=== PATIENT | male | born 1965 | race Caucasian/White ===

== ENCOUNTER 2016-09-27 13:15 | Inpatient (IN) | payer MEDICAID ==
[2016-09-27] MEDS ORDERED: PROMETHAZINE HCL 25 MG/ML VIAL ONE (14:27)
[2016-09-27] MEDS ORDERED: fentaNYL 100 MCG/2 ML INJ ONE ×3 (14:28→20:11)
[2016-09-27] MEDS ORDERED: MIDAZOLAM 2 MG/2 ML VIAL ONE ×2 (14:28→17:09)
[2016-09-27 14:30] LABS: HEMATOCRIT 44.9 % (40.0-51.0)
[2016-09-27 14:43] LABS: GLOMERULAR FILTRATION RATE > 60; GLUCOSE 125 mg/dL (70-100)
[2016-09-27 14:44] LABS: APTT 21.8 SEC (23.0-38.0)
[2016-09-27 15:16] LABS: INR 0.98 (0.83-1.16); PROTIME(PATIENT) 12.9 SEC (12.0-15.0)
[2016-09-27] MEDS ORDERED: HEPARIN/DEXTROSE 25,000 UNIT/500 ML BAG IV ONE (16:49)
[2016-09-27] MEDS ORDERED: IOPAMIDOL (ISOVUE-300) 100 ML BTL IV ONE (17:13)
[2016-09-27] MEDS ORDERED: HEPARIN 10,000 UNIT/10 ML MDV ONE (17:14)
[2016-09-27] MEDS ORDERED: ALTEPLASE 5 MG in NS 100 ML IVP SCH (18:00)
[2016-09-27] MEDS ORDERED: PROMETHAZINE HCL 25 MG/ML VIAL IVP PRN (18:21)
[2016-09-27] MEDS ORDERED: ONDANSETRON 4 MG/2 ML VIAL IVP PRN (18:21)
[2016-09-27] MEDS ORDERED: HEPARIN/DEXTROSE 500 ML IV SCH (18:30)
[2016-09-27] MEDS: NS 1,000 ML IV SCH (19:00)
[2016-09-27] MEDS: HYDROmorphONE/DILAUDID 4 MG TAB PO PRN ×2 (19:15→23:04)
--- NOTE | 2016-09-27 20:00 | IR ---
Left Lower Extremity Arterial Runoff TPA Lysis Indication: Two weeks post femoral to popliteal artery bypass graft, now thrombosed. Peripheral vas cular disease. Long segment distal occlusion of the SFA and popliteal artery. Dissection of the dis dea SFA and popliteal artery. The dissection at the distal anastomosis has been tacked down. A vein graft was used, that is about 5 mm in diameter. Informed Consent: Obtained from the patient. Risks and benefits were discussed. Cross Cutting Measure: Patient's current list of medications including all known prescriptions, over -the-counters, herbals, and vitamin/mineral/dietary supplements are reviewed. Medications' name, dos age, frequency, and route of administration are confirmed. Patient is a non-smoker. Prophylactic Antibiotic: Cefazolin was not ordered and administered for antimicrobial prophylaxis be cause it was not medically necessary. VTE Prophylaxis: There is not an order for VTE prophylaxis to be given within 24 hours of the proced ure end time. VTE prophylaxis was not given because it was not medically necessary. Technique: Patient is placed in supine position. A "timeout" procedure was performed to identify th e correct patient and the correct procedure. 1% Xylocaine was used for local anesthetic. All elemen ts of maximal sterile barrier technique, including cap, mask, sterile gown, sterile gloves, large gloria rile sheet, hand hygiene, and 2% chlorhexidine for cutaneous antisepsis, followed. Ultrasound evaluation of potential access site was performed. After successfully identifying a paten t vessel, ultrasound guidance was used to puncture the vessel. A permanent recording was created for the patient's record. When ultrasound is used, sterile gel and probe covers are used. The right common femoral artery is accessed under ultrasound guidance using a micropuncture needle, f ollowed by a micropuncture sheath and [place] wire. 0.035 wire is advanced into abdominal aorta, follow ed by a 7-Belarusian, 50-cm vascular sheath. Reverse catheter was formed in the abdominal aorta, positio pedro up-and-over into the left common iliac artery, followed by Glidewire into the SFA. Glidecatheter was advanced, followed by exchange of the Glidewire for Amplatz wire exchange length. The sheath wa s then advanced up-and-over and positioned into the left external iliac artery. Runoff arteriogram i s performed proximally, showing nubbin of thrombosed vein graft. This nubbin measured 3 mm in diamet er. Access across this nubbin proved to be fairly challenging today. Glidewire access into the nubbin wa s accomplished, gingerly followed by advancement of the Glidecatheter into the origin of this graft. The eventual system that was successful in traversing this thrombosed graft was CXI 0.026 system ove r 0.014 wire, with subsequent removal of the CXI system over an exchange length 0.018 wire. Once the 0.018 wire was advanced into the distal graft, I was able to slide the Glidecatheter distall y, exchanging the 0.018 wire for an exchange length Amplatz wire. A limited arteriogram was performed through this vein graft, which throughout its thigh course is taz rly small. This could be spasm. Distally, it measured about 4 mm. I was not able to advance a Glid ewire across the distal anastomosis, and I did not try very hard because I did not want to further di ssect the distal anastomosis. Arteriogram performed does show runoff into an anterior tibial artery, tibioperoneal trunk, and subse quent posterior tibial and peroneal artery. Runoff to foot was very limited through the infusion cat heter sidearm. This shows some runoff through the posterior tibial artery and peroneal artery. Ther e does appear to be some contrast coming down the anterior tibial distribution. Medication: 12.5 mg Phenergan, 4.5 mg Versed, 225 mcg fentanyl, 1554 to 1753. Fluoroscopy: 29.7 minutes, 18 images. Impressions 1. Thrombosed femoral to popliteal artery vein graft. 2. Probable high-grade spasm through the vein graft as shown by the small caliber. Dissection is no t completely excluded. 3. Difficult access across the proximal anastomosis. 4. Buckling of the wire at the distal anastomosis. 5. TPA lysis started with a 50-cm infusion catheter, distally terminating about 8 cm above the dista l anastomosis, and proximally terminating in the distal external iliac artery. 6. Widely patent profunda and proximal SFA. Dr. Randle was present throughout the majority of the case, and reviewed the above findings.
[2016-09-27] MEDS: fentaNYL 100 MCG/2 ML INJ IVP PRN ×2 (20:13→23:04)
[2016-09-27] MEDS: ALTEPLASE 5 MG in NS 100 ML IV SCH (21:46)
[2016-09-28] MEDS: HYDROmorphONE/DILAUDID 4 MG TAB PO PRN ×5 (02:48→23:47)
[2016-09-28] MEDS: ALTEPLASE 5 MG in NS 100 ML IV SCH ×3 (02:48→11:08)
[2016-09-28] MEDS: fentaNYL 100 MCG/2 ML INJ IVP PRN ×4 (02:49→19:34)
[2016-09-28] MEDS: NS 1,000 ML IV SCH (05:10)
[2016-09-28 06:33] LABS: % IMMATURE GRANULYOCYTES 0.3 % (0.0-1.1); ABSOLUTE IMMATURE GRANULOCYTES 0.04 10^3/uL (0.00-0.10); ADD DIFF? NO; ADD MORPH? NO; ADD SCAN? NO; ATYPICAL LYMPHOCYTE FLAG 10 (0-99); FRAGMENT RBC FLAG 0 (0-99); HEMATOCRIT 42.1 % (40.0-51.0); HEMOGLOBIN 14.3 g/dL (13.7-17.5); LEFT SHIFT FLG 0 (0-99); LIPEMIA HEMOLYSIS FLAG 90 (0-99); MEAN CELL HEMOGLOBIN 30.4 pg (27.9-34.1); MEAN CELL VOLUME 89.6 fL (81.5-99.8); MEAN PLATELET VOLUME 10.2 fL (8.7-11.7); PLATELET CLUMPS FLAG 10 (0-99); PLATELET COUNT 235 10^3/uL (150-400); RED CELL DISTRIBUTION WIDTH 12.8 % (11.5-15.2)
[2016-09-28 06:44] LABS: APTT 27.5 SEC (23.0-38.0)
[2016-09-28] MEDS ORDERED: NON-FORMULARY NEW DRUG (Insulin Aspart [Novolog Flexpen] 0 UNIT) SQ SCH (07:30)
[2016-09-28] MEDS: INSULIN DETEMIR 80 UNIT SQ SCH ×2 (08:18→20:59)
[2016-09-28] MEDS: MORPHINE 30 MG PO SCH ×2 (08:18→21:43)
[2016-09-28] MEDS: LOSARTAN PO SCH (08:19)
[2016-09-28] MEDS: HYDROCHLOROTHIAZIDE PO SCH (08:19)
[2016-09-28] MEDS ORDERED: INSULIN DETEMIR 80 UNIT SQ SCH (09:00)
--- NOTE | 2016-09-28 09:17 | SOAPPROG ---
SOAP Progress Note Assessment/Plan: Assessment: no overnight problems. c/o calf pain only. afebrile. vss. comfortable. abd soft. right groin puncture site flat. left foot pink, warm, nicely perfused. distal left SFA dissection s/p fem - bk pop with rev SVG - thrombosed likely secondary to prior dissection flap irregularity/outflow obstruction. for repeat IR angio today with possible rendezvous intervention. Plan: 09/28/16 09:15 Objective: Vital Signs Temp Pulse Resp BP Pulse Ox 36.6 C 88 14 130/85 H 97 09/28/16 08:00 09/28/16 08:00 09/28/16 08:00 09/28/16 08:00 09/28/16 08:00 Laboratory Results 09/28/16 06:20 09/27/16 14:10 09/27/16 09/28/16 09/29/16 05:59 05:59 05:59 Intake Total 1310 Output Total 400 Balance 910 PT 12.9 SEC (12.0-15.0) 09/27/16 14:10 INR 0.98 (0.83-1.16) 09/27/16 14:10 ICD10 Worksheet Patient Problems: Problems Problem Status Diagnosed Chronic pain Acute HTN (hypertension) Acute
--- NOTE | 2016-09-28 09:53 | GHP ---
[f rep st] PREOP HISTORY AND PHYSICAL DATE OF ADMISSION: 09/27/2016 REASON FOR ADMISSION: Left SFA occlusion. HISTORY OF PRESENT ILLNESS: 51-year-old diabetic male with a significant history for prior left SFA occlusion. He underwent catheter-directed therapy with initial buddhism of patency to his foot. Postprocedurally, he developed a dissection flap in his distal superficial femoral artery coursing toward his trifurcation vessels. He underwent a right femoral to below-knee popliteal artery bypass with reversed saphenous vein graft 2 weeks ago. Over the course of the last week, his graft has occluded. He is undergoing catheter- directed therapy at this time. PAST MEDICAL HISTORY: Diabetes, chronic back pain, high cholesterol. PAST SURGICAL HISTORY: Left femoral to below-knee popliteal artery bypass with reversed right great saphenous vein EVLT. MEDICATIONS: Losartan, Adderall, Lunesta, morphine, Levemir, NovoLog. ALLERGIES: Penicillin, nonsteroidals (anaphylaxis). SOCIAL HISTORY: No alcohol. PHYSICAL EXAMINATION: GENERAL APPEARANCE: The patient is alert, appropriate, comfortable. HEART: Regular. LUNGS: Clear. ABDOMEN: Soft, nontender, nondistended. EXTREMITIES: 2+ right femoral, popliteal, dorsalis pedis, and posterior tibial pulses. Left 2+ femoral pulse with absent popliteal, dorsalis pedis, and posterior tibial pulses. Minimal graft flow confirmed on targeted ultrasonography. IMPRESSION/PLAN: Left femoral-popliteal artery occlusion secondary to superficial femoral artery dissection, status post femoral to below-knee popiteal artery grafting. Graft thrombosis is thought most likely secondary to prior dissection flap related outflow obstruction. The patient is being admitted at this time for catheter-directed lytic therapy with possible intervention as indicated. /[id number]/MODL MTDD
[2016-09-28] MEDS ORDERED: HYDROmorphONE/DILAUDID 2 MG/ML SYR ONE (13:41)
[2016-09-28] MEDS ORDERED: MIDAZOLAM 2 MG/2 ML VIAL ONE ×3 (13:41→16:16)
[2016-09-28] MEDS ORDERED: HEPARIN 10,000 UNIT/10 ML MDV ONE (15:02)
[2016-09-28] MEDS ORDERED: VERAPAMIL 5 MG/2 ML VIAL ONE (15:02)
[2016-09-28] MEDS ORDERED: NITROGLYCERIN/D5W/250 ML BOTTLE IV ONE ×2 (15:05→17:09)
[2016-09-28] MEDS ORDERED: FLUMAZENIL 0.5 MG/5 ML MDV IVP ONE (16:16)
[2016-09-28] MEDS ORDERED: NALOXONE HCL 0.4 MG/ML INJ ONE (16:16)
--- NOTE | 2016-09-28 17:06 | POSTOPPROG ---
Post Op Note Date of Operation: 09/28/16 Surgeon: Thang Pate Anesthesia: IV Sedation Pre-op Diagnosis: Arterial occlusion, left leg Post-op Diagnosis: same Indication: Ischemic pain Procedure: lysis of left fem-pop graft, stenting of anterior tibial artery Findings: Chronic dissection, threatened limb Inf/Abcess present in the surg proc area at time of surgery?: No EBL: 50-100
[2016-09-28] MEDS ORDERED: HEPARIN 10,000 UNIT/10 ML MDV IVP PRN ×2 (17:16→20:19)
[2016-09-28] MEDS ORDERED: HEPARIN/DEXTROSE 500 ML IV SCH ×2 (17:30→20:19)
[2016-09-28 17:55] LABS: % IMMATURE GRANULYOCYTES 0.3 % (0.0-1.1); ABSOLUTE IMMATURE GRANULOCYTES 0.05 10^3/uL (0.00-0.10); ADD DIFF? NO; ADD MORPH? NO; ADD SCAN? NO; ATYPICAL LYMPHOCYTE FLAG 10 (0-99); FRAGMENT RBC FLAG 0 (0-99); HEMATOCRIT 42.6 % (40.0-51.0); HEMOGLOBIN 14.5 g/dL (13.7-17.5); LEFT SHIFT FLG 0 (0-99); LIPEMIA HEMOLYSIS FLAG 90 (0-99); MEAN CELL HEMOGLOBIN 30.2 pg (27.9-34.1); MEAN CELL VOLUME 88.8 fL (81.5-99.8); MEAN PLATELET VOLUME 10.2 fL (8.7-11.7); PLATELET CLUMPS FLAG 0 (0-99); PLATELET COUNT 223 10^3/uL (150-400); RED CELL DISTRIBUTION WIDTH 12.5 % (11.5-15.2)
--- NOTE | 2016-09-28 18:12 | SOAPPROG ---
SOAP Progress Note Assessment/Plan: Assessment: 1. Worsening ischemia of left foot. Threatened limb. 2. Possible compartment syndrome. The patient had leakage from surgical popliteal anasatamosis throughout the arteriographic procedure this afternoon. Plan: 1. Hold IV heparin. 2. Surgical consultation with Dr. Randle. We discussed my concerns by telephone at 1805 hours. 09/28/16 18:07 09/28/16 18:12 09/28/16 18:15 Subjective: Worsening pain in left foot. Objective: Left foot now dusky, tender, with nearly completely absent capillary refill. No pulses by palpation or doppler. Upper calf tender and tight, posteriorly. Vital Signs Temp Pulse Resp BP Pulse Ox 36.8 C 91 15 134/83 H 95 09/28/16 17:25 09/28/16 17:48 09/28/16 17:48 09/28/16 17:48 09/28/16 17:48 Laboratory Results 09/28/16 14:47 09/27/16 14:10 09/27/16 09/28/16 09/29/16 05:59 05:59 05:59 Intake Total 1310 Output Total 400 800 Balance 910 -800 PT 12.9 SEC (12.0-15.0) 09/27/16 14:10 INR 0.98 (0.83-1.16) 09/27/16 14:10 ICD10 Worksheet Patient Problems: Problems Problem Status Diagnosed Chronic pain Acute HTN (hypertension) Acute
[2016-09-28] MEDS ORDERED: IOPAMIDOL (ISOVUE-370) 150 ML BTL IV ONE (18:26)
[2016-09-28] MEDS ORDERED: IOPAMIDOL (ISOVUE-300) 100 ML BTL IV ONE (18:26)
[2016-09-28 18:32] LABS: APTT 29.9 SEC (23.0-38.0); INR 1.13 (0.83-1.16); PROTIME(PATIENT) 14.4 SEC (12.0-15.0)
--- NOTE | 2016-09-28 20:16 | SOAPPROG ---
SOAP Progress Note Assessment/Plan: Assessment: no overnight problems. c/o calf pain only. afebrile. vss. comfortable. abd soft. right groin puncture site flat. left foot pink, warm, nicely perfused. distal left SFA dissection s/p fem - bk pop with rev SVG - thrombosed likely secondary to prior dissection flap irregularity/outflow obstruction. for repeat IR angio today with possible rendezvous intervention. patient returned from IR - rendezvous procedure via AT artery with ultimate stenting across anastomosis and TP trunk dissection. IR concerned about possible compartment syndrome and anast leak. patient states that his pain is improved upon my arrival. still posterior calf pain. foot discomfort unchanged from prior to admission. able to move his toes easily. afebrile. comfortable. calf with clinically soft compartments. foot pink and warm - no further duskiness. signal best heard at PT. bedside US performed - no popliteal hematoma. good distal graft flow. difficult to visualize flow in ankle vessels. low clinical suspicion for compartment syndrome and leg currently not threatened. will start heparin drip tonight and supportive care to minimize ongoing vasospasm. final graft outflow outcome TBD. may need future distal revascularization if current situation fails. care plan reviewed with patient and father / nursing staff at bedside. Plan: 09/28/16 09:15 09/28/16 20:10 Objective: Vital Signs Temp Pulse Resp BP Pulse Ox 36.8 C 96 14 129/77 H 92 09/28/16 17:25 09/28/16 20:00 09/28/16 20:00 09/28/16 20:00 09/28/16 20:00 Laboratory Results 09/28/16 14:47 09/27/16 14:10 09/27/16 09/28/16 09/29/16 05:59 05:59 05:59 Intake Total 1310 Output Total 400 800 Balance 910 -800 PT 14.4 SEC (12.0-15.0) 09/28/16 17:45 INR 1.13 (0.83-1.16) 09/28/16 17:45 ICD10 Worksheet Patient Problems: Problems Problem Status Diagnosed Chronic pain Acute HTN (hypertension) Acute
[2016-09-28] MEDS ORDERED: HEPARIN 10,000 UNIT/10 ML MDV IVP ONE (20:30)
[2016-09-28] MEDS ORDERED: ZOLPIDEM TARTRATE 5 MG TAB PO SCH (21:00)
--- NOTE | 2016-09-28 22:49 | IR ---
Left Leg Arteriography Balloon Angioplasty and Stenting of Left Anterior Tibial Artery and Distal Bypass Anastomosis History: Assess catheter-directed thrombolysis of occluded left femoropopliteal bypass graft. Ische charmaine left foot. 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 Consent: Risks and benefits of the procedure were discussed in detail, and informed consent was obta ined. Medications: Intravenous conscious sedation and analgesia were given under my supervision. Vital si gns, pulse oximetry, and electrocardiogram were monitored. The patient received 6.5 milligrams of Ve rsed and 1.6 mg of Dilaudid intravenously. He received 12.5 mg of Phenergan and 4 mg of Zofran intra venously. After placing the left distal anterior tibial arterial access, 200 mcg of nitroglycerin, 2 000 units of heparin, and 2.5 mg of verapamil were slowly injected intraarterially to combat spasm. Start time: 1400. End time: 1650. Fluoroscopy time in minutes: 26.2. Estimated exposure in mGy: 207. Technique: The right groin and the left anterior ankle were prepped and draped in sterile fashion. All elements of maximal sterile barrier technique were used, including cap, mask, sterile gown, steri le gloves, large sterile sheet, hand hygiene, and 2% chlorhexidine, for cutaneous antisepsis. 1% Xyl ocaine was used for local anesthetic. For ultrasound imaging guidance, the transducer and cable were placed in a sterile cover, and sterile coupling gel was used. The ultrasonic wire of the indwelling EKOS infusion catheter was removed, allowing the endhole of the infusion catheter to be injected for diagnostic arteriography of the left knee and upper left calf. Indwelling sidearm sheath was then i njected for left external iliac arteriography. The infusion catheter and sidearm sheath were removed over an exchange 0.035 Glidewire, and 5-Swazi Williams catheter was used coaxially through a new 7-[facility] SideArm sheath for arteriography of the upper femoropopliteal bypass graft. The catheter was pul led back to the left common femoral artery during arteriographic acquisition in order to opacify the origin of the graft from the left common femoral artery. Catheter was advanced distally down the lef t superficial femoral artery for arteriography of the chronic occlusion at the level of the left addu ctor hiatus. Prolonged efforts were then made, attempting antegrade recanalization of chronic occlus ion using the [employer] crossing device (Ocelot PIXL), but the old occlusion could not be pass ed. After local anesthetic, using ultrasound guidance, a 4-Swazi Microintroducer was placed into the dis dea left anterior tibial artery at the ankle, allowing retrograde passage of a 0.035 Roadrunner wire up to the popliteal level. 4-Swazi Glidecatheter was then used to cross into the distal graft. The catheter was then passed to the tibioperoneal trunk for selective arteriography. The catheter was t hen placed into the distal bypass graft and passed cephalad up to the common femoral artery. Exchang e 0.035 Glidewire was inserted from below and captured from above by a 5-mm Amplatz [place] snare a nd guide catheter. The wire was pulled back through the right common femoral sheath, allowing skin t o skin control of the guide wire. A 4-mm x 4-cm long angioplasty balloon was used to dilate the dist al popliteal anastomosis. Images were reviewed with Dr. Randle, who desired stenting of the anterior ti bial artery. This was performed through a 4-Swazi sidearm sheath in the distal anterior tibial acce ss after switching to a 0.014 300-cm long wire. A coaxial 5-Swazi long sheath and a 5-mm angioplast y balloon were passed from above to attempt to flare the upstream side of the stent in order to confo rm with the larger contours of the distal bypass. The catheter would not pass through the stent. Th e lower access was used to place an overlapping 5-mm x 19-mm long balloon-expandable stent, which was deployed in the distal portion of the graft . Arteriography was performed. The 7-Swazi sheath and coaxial 5-Swazi sheath of the right groin were pulled back to the right exte rnal iliac artery for arteriogram to assess suitability for StarClose. StarClose was deployed over 0 .035 Roadrunner wire to achieve hemostasis at the right groin. The left 4-Swazi sidearm sheath was pulled after giving additional dose of nitroglycerin, 200 mcg intraarterial, and hemostasis was obtai pedro by manual compression with a thrombix patch. The patient was returned to the Intensive Care Unit . Findings: Initial arteriography demonstrates lysis of clot in the left femoropopliteal bypass graft. The proximal anastomosis is patent. False lumen and extravasation of contrast is found at the dista l anastomosis. Minimal runoff through a tiny distal channel reaches the true lumen of the left anter ior tibial artery. Trace opacification of tibioperoneal trunk appears to be a false lumen. The chronic occlusion of distal left superficial femoral artery at the adductor hiatus is accompanied by large collateral arteries. Retrograde cannulation of the [place] left popliteal artery is possibly within dissection. After ball oon angioplasty, dissection is noted in the tibioperoneal trunk, with severe stenosis at origin of th e left anterior tibial artery. Problems with the stent are found after attempting cannulation of the first stent from the upstream side. After placing the overlapping stent, the external contour appea rs adequate. Filling defects are present in the distal portion of the graft, but these diminished wi th time. However, outflow from the graft is stagnant, related to spasm of the anterior tibial artery . Impressions 1. 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 2. Lysis of left femoropopliteal bypass graft. 3. Balloon angioplasty and stenting of left anterior tibial artery origin and distal anastomosis of left femoropopliteal bypass graft, with poor outflow of bypass graft at the conclusion of interventio n. 4. Extravasation of contrast from distal anastomosis of the femoropopliteal bypass graft. I discussed results with Dr. Stew Randle at 1800 hours. - - - - - - - - - - - - - - - - - - - - - - - - - - - - - - - - - - - - - - - - - - - - (PQRS Measures: Current medications were listed in the medical record, including all known prescript ions, [id number] medications, herbal medications, and nutritional supplements. Tobacco Use: T he patient is a current smoker. The patient was advised to stop. Prophylactic antibiotic: Unnecess meli. VTE prophylaxis: Ordered to begin within 24 hours of procedure.)
--- NOTE | 2016-09-28 22:49 | IR ---
Left Leg Arteriography Balloon Angioplasty and Stenting of Left Anterior Tibial Artery and Distal Bypass Anastomosis History: Assess catheter-directed thrombolysis of occluded left femoropopliteal bypass graft. Ische charmaine left foot. 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 Consent: Risks and benefits of the procedure were discussed in detail, and informed consent was obta ined. Medications: Intravenous conscious sedation and analgesia were given under my supervision. Vital si gns, pulse oximetry, and electrocardiogram were monitored. The patient received 6.5 milligrams of Ve rsed and 1.6 mg of Dilaudid intravenously. He received 12.5 mg of Phenergan and 4 mg of Zofran intra venously. After placing the left distal anterior tibial arterial access, 200 mcg of nitroglycerin, 2 000 units of heparin, and 2.5 mg of verapamil were slowly injected intraarterially to combat spasm. Start time: 1400. End time: 1650. Fluoroscopy time in minutes: 26.2. Estimated exposure in mGy: 207. Technique: The right groin and the left anterior ankle were prepped and draped in sterile fashion. All elements of maximal sterile barrier technique were used, including cap, mask, sterile gown, steri le gloves, large sterile sheet, hand hygiene, and 2% chlorhexidine, for cutaneous antisepsis. 1% Xyl ocaine was used for local anesthetic. For ultrasound imaging guidance, the transducer and cable were placed in a sterile cover, and sterile coupling gel was used. The ultrasonic wire of the indwelling EKOS infusion catheter was removed, allowing the endhole of the infusion catheter to be injected for diagnostic arteriography of the left knee and upper left calf. Indwelling sidearm sheath was then i njected for left external iliac arteriography. The infusion catheter and sidearm sheath were removed over an exchange 0.035 Glidewire, and 5-Greenlandic Williams catheter was used coaxially through a new 7-Hernandez [employer] SideArm sheath for arteriography of the upper femoropopliteal bypass graft. The catheter was pul led back to the left common femoral artery during arteriographic acquisition in order to opacify the origin of the graft from the left common femoral artery. Catheter was advanced distally down the lef t superficial femoral artery for arteriography of the chronic occlusion at the level of the left addu ctor hiatus. Prolonged efforts were then made, attempting antegrade recanalization of chronic occlus ion using the [employer] INFORMATION TECHNOLOGY SECURITY MANAGER crossing device (Ocelot PIXL), but the old occlusion could not be pass ed. After local anesthetic, using ultrasound guidance, a 4-Greenlandic Microintroducer was placed into the dis dea left anterior tibial artery at the ankle, allowing retrograde passage of a 0.035 Roadrunner wire up to the popliteal level. 4-Greenlandic Glidecatheter was then used to cross into the distal graft. The catheter was then passed to the tibioperoneal trunk for selective arteriography. The catheter was t hen placed into the distal bypass graft and passed cephalad up to the common femoral artery. Exchang e 0.035 Glidewire was inserted from below and captured from above by a 5-mm Amplatz gooseneck snare a nd guide catheter. The wire was pulled back through the right common femoral sheath, allowing skin t o skin control of the guide wire. A 4-mm x 4-cm long angioplasty balloon was used to dilate the dist al popliteal anastomosis. Images were reviewed with Dr. Randle, who desired stenting of the anterior ti bial artery. This was performed through a 4-Greenlandic sidearm sheath in the distal anterior tibial acce ss after switching to a 0.014 300-cm long wire. A coaxial 5-Greenlandic long sheath and a 5-mm angioplast y balloon were passed from above to attempt to flare the upstream side of the stent in order to confo rm with the larger contours of the distal bypass. The catheter would not pass through the stent. Th e lower access was used to place an overlapping 5-mm x 19-mm long balloon-expandable stent, which was deployed in the distal portion of the graft . Arteriography was performed. The 7-Greenlandic sheath and coaxial 5-Greenlandic sheath of the right groin were pulled back to the right exte rnal iliac artery for arteriogram to assess suitability for StarClose. StarClose was deployed over 0 .035 Roadrunner wire to achieve hemostasis at the right groin. The left 4-Greenlandic sidearm sheath was pulled after giving additional dose of nitroglycerin, 200 mcg intraarterial, and hemostasis was obtai pedro by manual compression with a thrombix patch. The patient was returned to the Intensive Care Unit . Findings: Initial arteriography demonstrates lysis of clot in the left femoropopliteal bypass graft. The proximal anastomosis is patent. False lumen and extravasation of contrast is found at the dista l anastomosis. Minimal runoff through a tiny distal channel reaches the true lumen of the left anter ior tibial artery. Trace opacification of tibioperoneal trunk appears to be a false lumen. The chronic occlusion of distal left superficial femoral artery at the adductor hiatus is accompanied by large collateral arteries. Retrograde cannulation of the [place] left popliteal artery is possibly within dissection. After ball oon angioplasty, dissection is noted in the tibioperoneal trunk, with severe stenosis at origin of th e left anterior tibial artery. Problems with the stent are found after attempting cannulation of the first stent from the upstream side. After placing the overlapping stent, the external contour appea rs adequate. Filling defects are present in the distal portion of the graft, but these diminished wi th time. However, outflow from the graft is stagnant, related to spasm of the anterior tibial artery . Impressions 1. 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 2. Lysis of left femoropopliteal bypass graft. 3. Balloon angioplasty and stenting of left anterior tibial artery origin and distal anastomosis of left femoropopliteal bypass graft, with poor outflow of bypass graft at the conclusion of interventio n. 4. Extravasation of contrast from distal anastomosis of the femoropopliteal bypass graft. I discussed results with Dr. Stew Randle at 1800 hours. - - - - - - - - - - - - - - - - - - - - - - - - - - - - - - - - - - - - - - - - - - - - (PQRS Measures: Current medications were listed in the medical record, including all known prescript ions, mqoy-yaw-gxxinpo medications, herbal medications, and nutritional supplements. Tobacco Use: T he patient is a current smoker. The patient was advised to stop. Prophylactic antibiotic: Unnecess meli. VTE prophylaxis: Ordered to begin within 24 hours of procedure.)
--- NOTE | 2016-09-28 22:49 | IR ---
Left Leg Arteriography Balloon Angioplasty and Stenting of Left Anterior Tibial Artery and Distal Bypass Anastomosis History: Assess catheter-directed thrombolysis of occluded left femoropopliteal bypass graft. Ische charmaine left foot. 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 Consent: Risks and benefits of the procedure were discussed in detail, and informed consent was obta ined. Medications: Intravenous conscious sedation and analgesia were given under my supervision. Vital si gns, pulse oximetry, and electrocardiogram were monitored. The patient received 6.5 milligrams of Ve rsed and 1.6 mg of Dilaudid intravenously. He received 12.5 mg of Phenergan and 4 mg of Zofran intra venously. After placing the left distal anterior tibial arterial access, 200 mcg of nitroglycerin, 2 000 units of heparin, and 2.5 mg of verapamil were slowly injected intraarterially to combat spasm. Start time: 1400. End time: 1650. Fluoroscopy time in minutes: 26.2. Estimated exposure in mGy: 207. Technique: The right groin and the left anterior ankle were prepped and draped in sterile fashion. All elements of maximal sterile barrier technique were used, including cap, mask, sterile gown, steri le gloves, large sterile sheet, hand hygiene, and 2% chlorhexidine, for cutaneous antisepsis. 1% Xyl ocaine was used for local anesthetic. For ultrasound imaging guidance, the transducer and cable were placed in a sterile cover, and sterile coupling gel was used. The ultrasonic wire of the indwelling EKOS infusion catheter was removed, allowing the endhole of the infusion catheter to be injected for diagnostic arteriography of the left knee and upper left calf. Indwelling sidearm sheath was then i njected for left external iliac arteriography. The infusion catheter and sidearm sheath were removed over an exchange 0.035 Glidewire, and 5-Iraqi Williams catheter was used coaxially through a new 7-Hernandez [employer] SideArm sheath for arteriography of the upper femoropopliteal bypass graft. The catheter was pul led back to the left common femoral artery during arteriographic acquisition in order to opacify the origin of the graft from the left common femoral artery. Catheter was advanced distally down the lef t superficial femoral artery for arteriography of the chronic occlusion at the level of the left addu ctor hiatus. Prolonged efforts were then made, attempting antegrade recanalization of chronic occlus ion using the [employer] OSTEOLOGY TEACHER crossing device (Ocelot PIXL), but the old occlusion could not be pass ed. After local anesthetic, using ultrasound guidance, a 4-Iraqi Microintroducer was placed into the dis dea left anterior tibial artery at the ankle, allowing retrograde passage of a 0.035 Roadrunner wire up to the popliteal level. 4-Iraqi Glidecatheter was then used to cross into the distal graft. The catheter was then passed to the tibioperoneal trunk for selective arteriography. The catheter was t hen placed into the distal bypass graft and passed cephalad up to the common femoral artery. Exchang e 0.035 Glidewire was inserted from below and captured from above by a 5-mm Amplatz gooseneck snare a nd guide catheter. The wire was pulled back through the right common femoral sheath, allowing skin t o skin control of the guide wire. A 4-mm x 4-cm long angioplasty balloon was used to dilate the dist al popliteal anastomosis. Images were reviewed with Dr. Randle, who desired stenting of the anterior ti bial artery. This was performed through a 4-Iraqi sidearm sheath in the distal anterior tibial acce ss after switching to a 0.014 300-cm long wire. A coaxial 5-Iraqi long sheath and a 5-mm angioplast y balloon were passed from above to attempt to flare the upstream side of the stent in order to confo rm with the larger contours of the distal bypass. The catheter would not pass through the stent. Th e lower access was used to place an overlapping 5-mm x 19-mm long balloon-expandable stent, which was deployed in the distal portion of the graft . Arteriography was performed. The 7-Iraqi sheath and coaxial 5-Iraqi sheath of the right groin were pulled back to the right exte rnal iliac artery for arteriogram to assess suitability for StarClose. StarClose was deployed over 0 .035 Roadrunner wire to achieve hemostasis at the right groin. The left 4-Iraqi sidearm sheath was pulled after giving additional dose of nitroglycerin, 200 mcg intraarterial, and hemostasis was obtai pedro by manual compression with a thrombix patch. The patient was returned to the Intensive Care Unit . Findings: Initial arteriography demonstrates lysis of clot in the left femoropopliteal bypass graft. The proximal anastomosis is patent. False lumen and extravasation of contrast is found at the dista l anastomosis. Minimal runoff through a tiny distal channel reaches the true lumen of the left anter ior tibial artery. Trace opacification of tibioperoneal trunk appears to be a false lumen. The chronic occlusion of distal left superficial femoral artery at the adductor hiatus is accompanied by large collateral arteries. Retrograde cannulation of the [place] left popliteal artery is possibly within dissection. After ball oon angioplasty, dissection is noted in the tibioperoneal trunk, with severe stenosis at origin of th e left anterior tibial artery. Problems with the stent are found after attempting cannulation of the first stent from the upstream side. After placing the overlapping stent, the external contour appea rs adequate. Filling defects are present in the distal portion of the graft, but these diminished wi th time. However, outflow from the graft is stagnant, related to spasm of the anterior tibial artery . Impressions 1. 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 2. Lysis of left femoropopliteal bypass graft. 3. Balloon angioplasty and stenting of left anterior tibial artery origin and distal anastomosis of left femoropopliteal bypass graft, with poor outflow of bypass graft at the conclusion of interventio n. 4. Extravasation of contrast from distal anastomosis of the femoropopliteal bypass graft. I discussed results with Dr. Stew Randle at 1800 hours. - - - - - - - - - - - - - - - - - - - - - - - - - - - - - - - - - - - - - - - - - - - - (PQRS Measures: Current medications were listed in the medical record, including all known prescript ions, acmf-tgi-ftyudis medications, herbal medications, and nutritional supplements. Tobacco Use: T he patient is a current smoker. The patient was advised to stop. Prophylactic antibiotic: Unnecess meli. VTE prophylaxis: Ordered to begin within 24 hours of procedure.)
[2016-09-29] MEDS: fentaNYL 100 MCG/2 ML INJ IVP PRN (01:35)
[2016-09-29] MEDS: HYDROmorphONE/DILAUDID 4 MG TAB PO PRN ×2 (05:49→11:48)
[2016-09-29 06:09] LABS: HEMATOCRIT 39.7 % (40.0-51.0); HEMOGLOBIN 13.5 g/dL (13.7-17.5); MEAN CELL HEMOGLOBIN 30.5 pg (27.9-34.1); MEAN CELL VOLUME 89.8 fL (81.5-99.8); RED BLOOD CELL COUNT 4.42 10^6/uL (4.40-6.38); RED CELL DISTRIBUTION WIDTH 12.7 % (11.5-15.2)
[2016-09-29 06:46] LABS: ANION GAP 8 mEq/L (8-16); CALCIUM 7.9 mg/dL (8.5-10.4); CARBON DIOXIDE 26 mEq/l (22-31); CHLORIDE 102 mEq/L (97-110); CREATININE 0.9 mg/dL (0.7-1.3); GLOMERULAR FILTRATION RATE > 60; GLUCOSE 184 mg/dL (70-100); POTASSIUM 3.7 mEq/L (3.5-5.2); SODIUM 136 mEq/L (134-144)
[2016-09-29] MEDS: LOSARTAN PO SCH (09:13)
[2016-09-29] MEDS: HYDROCHLOROTHIAZIDE PO SCH (09:13)
[2016-09-29] MEDS: MORPHINE 30 MG PO SCH (09:13)
[2016-09-29] MEDS: INSULIN DETEMIR 80 UNIT SQ SCH (09:14)
--- NOTE | 2016-09-29 09:20 | SOAPPROG ---
SOAP Progress Note Assessment/Plan: Assessment: no overnight problems. c/o calf pain only. afebrile. vss. comfortable. abd soft. right groin puncture site flat. left foot pink, warm, nicely perfused. distal left SFA dissection s/p fem - bk pop with rev SVG - thrombosed likely secondary to prior dissection flap irregularity/outflow obstruction. for repeat IR angio today with possible rendezvous intervention. patient returned from IR - rendezvous procedure via AT artery with ultimate stenting across anastomosis and TP trunk dissection. IR concerned about possible compartment syndrome and anast leak. patient states that his pain is improved upon my arrival. still posterior calf pain. foot discomfort unchanged from prior to admission. able to move his toes easily. afebrile. comfortable. calf with clinically soft compartments. foot pink and warm - no further duskiness. signal best heard at PT. bedside US performed - no popliteal hematoma. good distal graft flow. difficult to visualize flow in ankle vessels. low clinical suspicion for compartment syndrome and leg currently not threatened. will start heparin drip tonight and supportive care to minimize ongoing vasospasm. final graft outflow outcome TBD. may need future distal revascularization if current situation fails. care plan reviewed with patient and father / nursing staff at bedside. no overnight concerns. calf pain better - posterior knee pain only. able to walk last sri. some heel pain. afebrile. comfortable. right groin puncture site flat. left foot warm. graft signal strong triphasic - PT signal strong biphasic - monophasic peroneal signal. calf compartments soft. graft currently patent. will plan to maintain on plavix and lovenox. aware of heightened risk for graft failure and need for future distal revascularization. patient seen at bedside with dr. nicholas. will observe in ICU after plavix dosing to ensure no allergic reaction given patient's history of anaphylaxis. Plan: 09/28/16 09:15 09/28/16 20:10 09/29/16 09:13 Objective: Vital Signs Temp Pulse Resp BP Pulse Ox 36.6 C 86 18 113/77 94 09/28/16 22:00 09/29/16 06:00 09/29/16 06:00 09/29/16 06:00 09/29/16 06:00 Laboratory Results 09/29/16 05:55 09/29/16 05:55 09/28/16 09/29/16 09/30/16 05:59 05:59 05:59 Intake Total 1310 317 Output Total 400 1700 475 Balance 910 -8923 -984 PT 14.4 SEC (12.0-15.0) 09/28/16 17:45 INR 1.13 (0.83-1.16) 09/28/16 17:45 ICD10 Worksheet Patient Problems: Problems Problem Status Diagnosed Chronic pain Acute HTN (hypertension) Acute
[2016-09-29] MEDS ORDERED: CLOPIDOGREL BISULFATE 75 MG TAB PO SCH (09:30)
[2016-09-29 14:13] VITALS: TEMP 99.3; O2SAT 91
[2016-09-29 14:14] VITALS: BP 121/58; PULSE 90; RESP 16
[2016-09-29] MEDS ORDERED: ENOXAPARIN 120 MG/0.8 ML SYR SC SCH (14:30)
--- NOTE | 2016-09-29 14:52 | GDS ---
[f rep st] DISCHARGE SUMMARY CONSULTANTS: 1. Maki Hart MD. 2. Thang Pate MD. ADMISSION DIAGNOSIS: Left superficial femoral artery occlusion. DISCHARGE DIAGNOSIS: Left superficial femoral artery occlusion, now status post stent placement at distal anastomosis at the area of dissection flap and outflow obstruction. HOSPITAL COURSE: 51-year-old diabetic male with a significant history of prior left SFA occlusion. At that time, he had undergone catheter-directed therapy with initial cheondoism of flow. He has been followed as an outpatient and subsequently underwent a left femoral to below-knee popliteal artery bypass with a reverse saphenous vein graft approximately two weeks ago. During his followup visit, it was noted that his graft had become occluded, subsequently prompting need for further catheter-directed therapy. The patient was brought into [facility] on September 27, 2016, at which time he had a t-PA lysis via catheter infusion and was admitted to the hospital for infusion overnight. He subsequently on September 28 underwent balloon angioplasty and stenting of the left anterior tibial artery and distal bypass anastomosis. It was felt occlusion occurred secondary to further dissection with outflow obstruction. Interventional Radiology was able to place a stent at this site. He was again monitored overnight. As of this morning, he was initiated on Plavix without incident. He is tolerating the medication. Here in the hospital , he has been on a heparin drip as well. At this point, he has been up ambulating without difficulty. The patient remains high risk for graft failure. The patient currently with Doppler signal best heard at the PT. Should he have further graft failure, he would be in need for a future revascularization. However, at this time, we will plan to discharge the patient home today with the addition of Plavix as well as Lovenox, with plans for follow-up next week. The patient was seen and evaluated with Dr. Randle. DISCHARGE MEDICATIONS: Lovenox 100 mg subq twice daily at home, Plavix 75 mg daily. He will continue his Dilaudid 8 mg q.6h. as needed for pain. He will continue NovoLog FlexPen sliding scale, as well as his Levemir 80 units twice daily. He will continue losartan/HCTZ 100/12.5 mg daily, Lunesta 3 mg at bedtime, morphine 30 mg twice daily. DISCHARGE INSTRUCTIONS: Full verbal and written discharge instructions were provided to the patient. He can shower when he gets home. He is able to drive when his pain is controlled. Activity as tolerated. He will follow up in one week in the office with Dr. Randle. The patient is to call the office to make appointment. /[id number]/MODL MTDD
== END 2016-09-29 15:12 | disposition home or self-care (01) | DRG 254 ==
LOC: FIMAGING 13:15 → F2N 18:44
PROVIDERS: ADMIT Radiology Diagnostic Radiology; ATTEND Surgery
DX: I77.77 Dissection of artery of lower extremity (principal); E11.51 Type 2 diabetes mellitus with diabetic peripheral angiopathy without gangrene; I73.9 Peripheral vascular disease, unspecified; G89.29 Other chronic pain; M54.9 Dorsalgia, unspecified
CPT/HCPCS: 82947-QW; 85520-90; C1725; C1757; C1760; C1769; C1773; C1876; C1892; J1170; J1644; J1650; J2250; J2310; J2405; J2550; J2997; J3010; Q9967

== ENCOUNTER → 2016-11-24 | Outpatient (CLI) | payer MEDICAID ==
[~2016-11-24] MED LIST: IOPAMIDOL (ISOVUE-300) 100 ML BTL IV ONE
[2016-11-24 13:36] LABS: GLOMERULAR FILTRATION RATE > 60
== END ==
LOC: FIMAGING 12:46
PROVIDERS: ATTEND Surgery
DX: I74.3 Embolism and thrombosis of arteries of the lower extremities (principal); I71.2 Thoracic aortic aneurysm, without rupture
CPT/HCPCS: Q9967

== ENCOUNTER 2016-12-31 11:13 | Inpatient (IN) | payer MEDICAID ==
[2016-12-31] MEDS ORDERED: LIDOCAINE 1% 5 ML SDV ONE (11:47)
[2016-12-31] MEDS ORDERED: LR 1,000 ML IV ONE (12:11)
[2016-12-31] MEDS ORDERED: PAPAVERINE HCL 60 MG/2 ML SDV ONE (12:24)
[2016-12-31] MEDS ORDERED: BUPIVACAINE 0.5% 30 ML SDV ONE (12:24)
[2016-12-31] MEDS ORDERED: KETAMINE 100 MG/10 ML SYR IVP ONE ×2 (12:34→20:16)
[2016-12-31] MEDS ORDERED: HYDROmorphONE/DILAUDID 2 MG/ML INJ ONE ×4 (12:34→18:16)
[2016-12-31] MEDS ORDERED: PROPOFOL 200 MG/20 ML VIAL ONE (12:34)
[2016-12-31] MEDS ORDERED: DEXMEDETOMIDINE HCL 200 MCG/2 ML VIAL IV ONE ×2 (12:35→15:50)
[2016-12-31] MEDS ORDERED: ROCURONIUM 100 MG/10 ML VIAL ONE (12:42)
[2016-12-31] MEDS ORDERED: ESMOLOL HCL 100 MG/10 ML VIAL IV ONE (12:42)
[2016-12-31] MEDS ORDERED: MIDAZOLAM 2 MG/2 ML VIAL ONE (12:43)
[2016-12-31] MEDS ORDERED: CLINDAMYCIN 900 MG/DEXTROSE 50 ML IV ONE (13:24)
[2016-12-31] MEDS ORDERED: IOTHALAMATE MEG (CONRAY) 50 ML VIAL IV ONE ×3 (13:26→20:08)
[2016-12-31] MEDS ORDERED: epHEDrine SULFATE 10 MG/ML SYR ONE (16:34)
[2016-12-31] MEDS ORDERED: ONDANSETRON 4 MG/2 ML VIAL ONE (16:36)
[2016-12-31] MEDS ORDERED: HEPARIN 10,000 UNIT/10 ML MDV ONE (17:17)
[2016-12-31] MEDS ORDERED: ONDANSETRON 4 MG/2 ML VIAL IVP PRN (21:18)
--- NOTE | 2016-12-31 21:18 | POSTOPPROG ---
Post Op Note Date of Operation: 12/31/16 Surgeon: Stew Randle Buzzle Buffer: Jamshid Sen Anesthesiologist: Key Anesthesia: GET(General Endotracheal) Pre-op Diagnosis: Left leg ischemia, femoral artery dissection Post-op Diagnosis: Same Procedure: Left femoral - anterior tibial artery bypass with RSVG Findings: Difficult dissection. Excellent run off upon completion Inf/Abcess present in the surg proc area at time of surgery?: No EBL: 50-100 Total fluids administered: 4400cc Complications: no immediate
[2016-12-31] MEDS ORDERED: DIAZEPAM 10 MG/2 ML SYR IVP PRN (21:24)
[2016-12-31] MEDS ORDERED: fentaNYL 250 MCG/5 ML INJ ONE (21:28)
[2016-12-31] MEDS ORDERED: DIAZEPAM 10 MG/2 ML SYR ONE (21:53)
[2016-12-31] MEDS: HYDROmorphONE/DILAUDID 1 MG/ML SYR IVP PRN (23:53)
[2016-12-31] MEDS: HYDROmorphONE/DILAUDID 4 MG TAB PO PRN (23:54)
[2016-12-31] MEDS: HCTZ PO SCH (23:55)
[2016-12-31] MEDS: MORPHINE 30 MG PO SCH (23:55)
[2016-12-31] MEDS: LOSARTAN PO SCH (23:55)
[2017-01-01] MEDS: CLINDAMYCIN 900 MG/DEXTROSE 50 ML IV SCH ×3 (00:21→13:55)
[2017-01-01] MEDS: ENOXAPARIN 40 MG/0.4 ML SYR SC SCH ×2 (00:22→08:19)
[2017-01-01] MEDS: LR 1,000 ML IV SCH ×4 (00:22→22:23)
[2017-01-01] MEDS: HYDROmorphONE/DILAUDID 1 MG/ML SYR IVP PRN ×5 (03:06→12:15)
[2017-01-01] MEDS: HYDROmorphONE/DILAUDID 4 MG TAB PO PRN ×2 (06:03→12:14)
[2017-01-01 06:56] LABS: % IMMATURE GRANULYOCYTES 0.5 % (0.0-1.1); ABSOLUTE IMMATURE GRANULOCYTES 0.06 10^3/uL (0.00-0.10); ADD DIFF? NO; ADD MORPH? NO; ADD SCAN? NO; ATYPICAL LYMPHOCYTE FLAG 10 (0-99); FRAGMENT RBC FLAG 0 (0-99); HEMATOCRIT 35.8 % (40.0-51.0); LEFT SHIFT FLG 0 (0-99); LIPEMIA HEMOLYSIS FLAG 80 (0-99); MEAN CELL HEMOGLOBIN 29.7 pg (27.9-34.1); MEAN CELL HEMOGLOBIN CONCENTR. 33.5 g/dL (32.4-36.7); MEAN CELL VOLUME 88.6 fL (81.5-99.8); PLATELET CLUMPS FLAG 10 (0-99); PLATELET COUNT 192 10^3/uL (150-400); RED BLOOD CELL COUNT 4.04 10^6/uL (4.40-6.38); RED CELL DISTRIBUTION WIDTH 13.6 % (11.5-15.2)
[2017-01-01 07:09] LABS: ANION GAP 5 mEq/L (8-16); CALCIUM 6.5 mg/dL (8.5-10.4); CARBON DIOXIDE 23 mEq/l (22-31); CHLORIDE 110 mEq/L (97-110); CREATININE 0.7 mg/dL (0.7-1.3); GLOMERULAR FILTRATION RATE > 60; GLUCOSE 165 mg/dL (70-100); SODIUM 138 mEq/L (134-144)
[2017-01-01] MEDS: LOSARTAN PO SCH ×2 (08:22→08:37)
[2017-01-01] MEDS: HCTZ PO SCH ×2 (08:22→08:37)
[2017-01-01] MEDS: INSULIN DETEMIR 80 UNIT SQ SCH ×3 (08:23→21:04)
[2017-01-01] MEDS: MORPHINE 30 MG PO SCH ×5 (08:29→21:23)
[2017-01-01] MEDS ORDERED: ZOLPIDEM TARTRATE 5 MG TAB PO PRN (08:48)
[2017-01-01] MEDS ORDERED: ENOXAPARIN 40 MG/0.4 ML SYR SC SCH (09:00)
[2017-01-01] MEDS ORDERED: DEXMEDETOMIDINE HCL 400 MCG in NS 100 ML IV SCH (09:30)
[2017-01-01] MEDS ORDERED: POTASSIUM CL 20 MEQ TAB PO ONE ×2 (09:32→13:00)
[2017-01-01] MEDS ORDERED: CLOPIDOGREL BISULFATE 75 MG TAB PO ONE (09:33)
--- NOTE | 2017-01-01 09:44 | SOAPPROG ---
SOAP Progress Note Assessment/Plan: Assessment:c/o left leg and right arm pain. no other concerns. afebrile. bp 100. comfortable. abd soft. rue with AC fossa tenderness - 2+ B/R pulse. no swelling. no redness. normal ROM. left leg dressings dry. foot pink. strong graft pulse present. k3. doing reasonably well, graft remains widely patent s/p complicated left fem-tib bypass with composite RGSV graft. add precedex for pain control. PT/OT - ambulate when able. resume home pain regimen. K supplement. will restart Plavix (originally thromboembolic occlusion / enlarging AAA). keep in PCU. Plan: 01/01/17 09:41 Objective: Vital Signs Temp Pulse Resp BP Pulse Ox 36.9 C 101 H 11 L 100/46 L 92 01/01/17 07:51 01/01/17 07:51 01/01/17 07:51 01/01/17 08:37 01/01/17 07:51 Laboratory Results 01/01/17 06:10 01/01/17 06:10 12/31/16 01/01/17 01/02/17 05:59 05:59 05:59 Intake Total 7880 Output Total 3100 Balance 4780 ICD10 Worksheet Patient Problems: Problems Problem Status Onset Chronic pain Acute HTN (hypertension) Acute
--- NOTE | 2017-01-01 11:20 | GCON ---
[f rep st] CONSULTATION REASON FOR CONSULTATION: The patient examined postoperatively after receiving a left femoral anteri or tibial artery bypass. HISTORY OF PRESENT ILLNESS: The patient is a 51-year-old white male with a past medical history inc luding peripheral vascular disease, diabetes, chronic back pain, hypercholesterolemia. In discussio n with the patient, he is experiencing acute excruciating pain predominantly of the groin, as well a s into the left leg. His back pain is reasonably well controlled. He was to begin on Precedex. He denies any chest pain, pleuritic-type chest pain, or angina equivalent. No fever. No night sweats . No nausea, vomiting, or diarrhea. PAST MEDICAL HISTORY: Diabetes, chronic back pain, hypercholesterolemia. ALLERGIES: Penicillin, nonsteroidal anti-inflammatory drugs. PAST SURGICAL HISTORY: Left femoral fqpwj-myy-ruwz popliteal artery bypass. SOCIAL HISTORY: No history of tobacco use. No history of alcohol use. PHYSICAL EXAM: VITAL SIGNS: Blood pressure is 100/46, pulse 101, respiration 11, temperature 36.9, oxygen saturation 92% on room air. GENERAL: He is a mildly overweight, 51-year-old white male who is resting comfortably in no acute distress. HEENT: Eyes are CATHRYN, EOMI. Throat shows no erythem a or tonsillar hypertrophy. NECK: Supple. No cervical adenopathy. HEART: Regular rate and rhyth m with a 2/6 systolic murmur at left sternal border without radiation. LUNGS: Diminished breath so unds, but no wheeze. ABDOMEN: Soft, nontender. Bowel sounds are present in all 4 quadrants. EXTR EMITIES: No clubbing, cyanosis, or edema. His left leg is bandaged. LABORATORIES: White count is 13, hemoglobin 12, hematocrit 35, platelet count is 192, sodium 138, p otassium 3.0, chloride 110, CO2 is 23, BUN 12, creatinine 0.7, glucose is 165. IMPRESSION: 1. Status post left femoral and anterior tibial artery bypass. 2. Severe pain. 3. History of chronic pain. 4. Peripheral vascular disease. 5. Diabetes. 6. Hypertension. RECOMMENDATIONS: 1. Adequate pain control. Agree with Precedex at this time. 2. DVT and PE prophylaxis. 3. Out of bed to chair. 4. Start early ambulation as soon as possible. /[id number]/MODL
[2017-01-01] MEDS: HYDROmorphONE/DILAUDID 4 MG TAB PO SCH ×3 (13:50→22:06)
--- NOTE | 2017-01-01 16:16 | GOP ---
[f rep st] OPERATIVE REPORT DATE OF OPERATION: 12/31/2016 SURGEON: Stew Randle MD EPIDEMIOLOGY INVESTIGATOR: Jamshid Sen MD, Ph.D. ANESTHESIA: General. ANESTHESIOLOGIST: Elan Mackey MD. PREOPERATIVE DIAGNOSIS: 1. Left leg ischemia. 2. Superficial femoral artery dissection. POSTOPERATIVE DIAGNOSIS: 1. Left leg ischemia. 2. Superficial femoral artery dissection. PROCEDURE PERFORMED: 1. Redo left femoral to anterior tibial artery bypass with composite reversed saphenous vein graft. 2. Use of intraoperative arteriography. 3. Use of intraoperative ultrasonography. FINDINGS: Extensive scarification around igiugig vessels and difficult dissection. Excellent single vessel runoff through Dorsalis Pedis Artery upon completion. INDICATIONS: 51-year-old male with a history of a left distal superficial femoral artery occlusion secondary to thromboembolic event, most likely from underlying aortic aneurysmal disease. He underwent initial catheter-based lytic therapy with angioplasty which subsequently failed. A remedial endovascular approach for reestablishing flow to his foot was unsuccessful. The patient was admitted for a femoral to below-knee popliteal artery bypass with reverse saphenous vein. Postoperative course was complicated by a progressive distal femoral/popliteal artery dissection resultant in occlusion of his distal anastomosis. Salvage attempts at catheter-based reopening with stent placement were unsuccessful. The patient requested to discontinue further efforts at that time. He has had progressive signs and symptoms of leg ischemia. Preoperative imaging disclosed a patent distal superficial femoral artery above Hunters canal with infrapopliteal in line flow to his foot. He is taken to the operating today for a femoral to anterior tibial artery bypass. Surgical risks and benefits were explained to the patient at length, including but not limited to, bleeding, infection, graft failure, need for additional revascularization, ultimate limb loss, nerve injury, as well as subsequent cardiac complications. All questions were answered. He desires to proceed. DESCRIPTION OF PROCEDURE: General anesthesia was induced. Intraoperative ultrasonography was used to map out the accessory great saphenous vein, small saphenous vein, and distal great saphenous veins. The left anterior tibial artery was initially dissected out. A longitudinal incision was created lateral to the tibia. The anterior tibialis musculature was retracted medially. The extensor hallucis and extensor digitorum longus muscles were retracted laterally, allowing dissection down toward the interosseous membrane. A soft anterior tibial artery was circumferentially encompassed with vessel loops. The intervening venous branches were all divided between Hemoclips or with electrocautery. The mid - distal femoral artery was subsequently dissected out. Prior vein harvesting incisions were opened and connected. The sartorius muscle was retracted posteriorly. The femoral space was initially entered just above Hunters canal. This dissection was exceptionally difficult, given dense scarification of the distal femoral artery and vein to the adductor longus and leslie muscles laterally and vastus medialis musculature medially - this was not a soft, easily separable space given prior manipulations. The vascular bundle was ultimately encompassed. The artery was a firm, fibrotic, and completely occluded at this point. The dissection was carried proximally along side the adductor longus musculature, where the artery remained occluded to above the level of the midthigh. This occlusion was higher than anticipated based upon preop CTA. Intraoperative arteriography was used for further luminal assessment. The artery was partially opened disclosing a completely fibrotic lumen distally. Multiple centimeters proximal at the level of the upper thigh was an area of patency. The dissection was carried proximally as high as could be accomplished through a medial approach. Areas of faint pulsatility were then identified. To facilitate better exposure, this needed to be accomplished from an extension of the groin incision. The common femoral artery and anterior accessary saphenous vein origin was identified. Pulsatility at the groin was initially noted to be exceptionally faint at this point despite adequate systolic blood pressure. This along with the more proximal SFA occlusion than suggested from his preoperative studies led to further intraoperative angiography. The common femoral artery was completely encased in a dense fibrotic scar from the prior dissection. This was able to the punctured with a butterfly needle showing a nice appearing proximal superficial femoral artery to the upper 3rd of the thigh only. The distal EIA and WHEEL ALIGNMENT MECH[employer]IC appeared without significant stenosis. This proximal third SFA was chosen for the proximal anastomosis. The saphenous veins were subsequently harvested in 3 separate pieces, including the anterior accessory vein, the residual distal great saphenous vein to the level of the ankle, and the small saphenous vein toward the saphenopopliteal junction. The sural nerve was preserved throughout the dissection as was the superficial saphenous nerve. The veins were all removed from the field. With heparin instillation, these all distended up nicely. A composite graft anastomoses were created with the three segments of saphenous vein forming an approximately 45 cm of vein graft. The distal tunnel was created, coursing lateral to the fibular head, with a counterincision being made on the distal lateral thigh, and tunnel was crossed over along side the biceps femoris musculature and the thigh tunnel was created along the igiugig vasculature above the vastus muscle compartment. The vein was marked for orientation and carefully tunneled from distal to proximal, maintaining orientation at all points. The leg was flexed and extended to ensure no cross-over kinking. Heparin bolus was administered. The distal anastomosis was initially created in end-to-side fashion using running 7-0 Prolene suture. Excellent hemostasis was easily obtained. The proximal anastomosis was then created in end-to-side fashion. The arteries had all been forward-bled and back-bled along for reestablishment of flow to the level of the ankle. A nicely palpable graft was noted alongside the lateral thigh. A pedal pulses was not palpable. Completion arteriography was performed, showing a widely patent proximal and distal anastomoses with no graft kinking and excellent single-vessel flow through the anterior tibial artery with pedal arch filling throughout the foot. Satisfactory hemostasis was assured throughout all wound cavities. The multiple defects were all closed in layers with absorbable suture followed by skin john. The patient was taken to the recovery room extubated in satisfactory condition with a pink, viable foot. Copy requested to: MORGAN KEITA /[id number]/MODL MTDD
[2017-01-01] MEDS ORDERED: Eszopiclone [Lunesta] 3 MG PO SCH (21:00)
[2017-01-02] MEDS: HYDROmorphONE/DILAUDID 4 MG TAB PO SCH ×6 (01:59→21:41)
[2017-01-02] MEDS: LR 1,000 ML IV SCH (04:08)
[2017-01-02 06:31] LABS: ANION GAP 6 mEq/L (8-16); CALCIUM 8.2 mg/dL (8.5-10.4); CARBON DIOXIDE 27 mEq/l (22-31); CHLORIDE 102 mEq/L (97-110); CREATININE 0.8 mg/dL (0.7-1.3); GLOMERULAR FILTRATION RATE > 60; GLUCOSE 132 mg/dL (70-100); POTASSIUM 3.7 mEq/L (3.5-5.2); SODIUM 135 mEq/L (134-144)
[2017-01-02] MEDS ORDERED: POTASSIUM CL 20 MEQ TAB PO ONE (09:00)
--- NOTE | 2017-01-02 09:00 | SOAPPROG ---
SOAP Progress Note Assessment/Plan: Assessment:left leg pain still intense but continues to turn down additional meds. did not like how precedex made him feel and refused additional infusion. right arm pain better. notes right eye discomfort from oxygen blowing on it. complains of sweats - has not gotten out of bed since surgery. no other concerns. afebrile. bp 150. comfortable. abd soft. rue with resolved AC fossa tenderness - 2+ B/R pulse. no swelling. no redness. normal ROM. left leg incisions clean - notable erythema/hyperemia left lateral leg incision with significant tenderness focally over graft tunnel site. foot pink. strong graft pulse present, biphasic DP/PT/peroneal signals. K 3.7. doing reasonably well, graft remains widely patent s/p complicated left fem-tib bypass with composite RGSV graft. patient only wants his usual meds plus the provided supplements. PT/OT - ambulate today. continue home pain regimen. K supplement again. continue Plavix (originally thromboembolic occlusion / enlarging AAA). restart clindamycin for left lateral leg redness. to floor today. Plan: 01/01/17 09:41 01/02/17 08:55 Objective: Vital Signs Temp Pulse Resp BP Pulse Ox 36.8 C 73 13 150/109 H 93 01/01/17 15:41 01/02/17 04:00 01/02/17 04:00 01/02/17 04:00 01/02/17 04:00 Laboratory Results 01/01/17 06:10 01/02/17 05:55 01/01/17 01/02/17 01/03/17 05:59 05:59 05:59 Intake Total 9664 4505 Output Total 3100 4150 Balance 4780 351 ICD10 Worksheet Patient Problems: Problems Problem Status Onset Chronic pain Acute HTN (hypertension) Acute
[2017-01-02] MEDS: ENOXAPARIN 40 MG/0.4 ML SYR SC SCH (09:03)
[2017-01-02] MEDS: CLOPIDOGREL BISULFATE 75 MG TAB PO SCH (09:03)
[2017-01-02] MEDS: HCTZ PO SCH ×2 (09:03→20:25)
[2017-01-02] MEDS: LOSARTAN PO SCH ×2 (09:03→20:25)
[2017-01-02] MEDS ORDERED: SUMAtriptan 6 MG/0.5 ML VIAL SC ONE (09:12)
[2017-01-02] MEDS: MORPHINE 30 MG PO SCH ×2 (10:08→20:25)
[2017-01-02] MEDS: INSULIN DETEMIR 80 UNIT SQ SCH ×2 (10:10→20:26)
[2017-01-02] MEDS ORDERED: SUMAtriptan 50 MG TAB PO ONE (10:30)
[2017-01-02] MEDS: CLINDAMYCIN 900 MG/DEXTROSE 50 ML IV SCH ×2 (13:49→21:41)
[2017-01-02] MEDS: DOCUSATE SODIUM 100 MG CAP PO SCH (20:25)
[2017-01-03] MEDS: HYDROmorphONE/DILAUDID 4 MG TAB PO SCH ×6 (02:05→22:10)
[2017-01-03 05:38] LABS: ANION GAP 8 mEq/L (8-16); CALCIUM 8.5 mg/dL (8.5-10.4); CARBON DIOXIDE 26 mEq/l (22-31); CHLORIDE 100 mEq/L (97-110); CREATININE 0.8 mg/dL (0.7-1.3); GLOMERULAR FILTRATION RATE > 60; GLUCOSE 203 mg/dL (70-100); POTASSIUM 3.6 mEq/L (3.5-5.2); SODIUM 134 mEq/L (134-144)
[2017-01-03] MEDS: CLINDAMYCIN 900 MG/DEXTROSE 50 ML IV SCH ×3 (05:39→22:10)
--- NOTE | 2017-01-03 07:50 | SOAPPROG ---
SOAP Progress Note Assessment/Plan: Assessment:good night. pain better - mild heel pain and occasional thigh zinger pain when standing. stood last sri. no arm complaints. today. wants to go home! afebrile. incisions all clean. still mild erythema left lateral leg - less intense. strong graft pulse. doppler ankle signals only. foot pink and warm - excellent cap refill. K 3.6. doing well overall, motivated. cont clindamycin. cont PT. cont Plavix. K supplement. possible DC tomorrow. Plan: 01/01/17 09:41 01/02/17 08:55 01/03/17 07:45 Objective: Vital Signs Temp Pulse Resp BP Pulse Ox 36.4 C 77 16 132/81 H 91 L 01/03/17 04:00 01/03/17 04:00 01/03/17 04:00 01/03/17 04:00 01/03/17 04:00 Laboratory Results 01/01/17 06:10 01/03/17 04:29 01/02/17 01/03/17 01/04/17 05:59 05:59 05:59 Intake Total 4501 8120 Output Total 1342 6554 Balance 351 -325 ICD10 Worksheet Patient Problems: Problems Problem Status Onset Chronic pain Acute HTN (hypertension) Acute
[2017-01-03] MEDS: POTASSIUM CL 20 MEQ TAB PO SCH ×2 (09:07→20:46)
[2017-01-03] MEDS: DOCUSATE SODIUM 100 MG CAP PO SCH ×3 (09:07→20:48)
[2017-01-03] MEDS: ENOXAPARIN 40 MG/0.4 ML SYR SC SCH (09:07)
[2017-01-03] MEDS: CLOPIDOGREL BISULFATE 75 MG TAB PO SCH (09:07)
[2017-01-03] MEDS: INSULIN DETEMIR 80 UNIT SQ SCH ×2 (09:08→20:48)
[2017-01-03] MEDS: MORPHINE 30 MG PO SCH ×2 (09:28→20:46)
[2017-01-03] MEDS: LOSARTAN PO SCH (20:47)
[2017-01-03] MEDS: HCTZ PO SCH (20:47)
[2017-01-04] MEDS: HYDROmorphONE/DILAUDID 4 MG TAB PO SCH ×3 (03:20→10:07)
[2017-01-04 05:22] LABS: ANION GAP 8 mEq/L (8-16); CALCIUM 8.4 mg/dL (8.5-10.4); CARBON DIOXIDE 27 mEq/l (22-31); CHLORIDE 99 mEq/L (97-110); CREATININE 0.9 mg/dL (0.7-1.3); GLOMERULAR FILTRATION RATE > 60; GLUCOSE 249 mg/dL (70-100); POTASSIUM 3.8 mEq/L (3.5-5.2); SODIUM 134 mEq/L (134-144)
[2017-01-04] MEDS: CLINDAMYCIN 900 MG/DEXTROSE 50 ML IV SCH ×2 (05:44→12:26)
[2017-01-04 07:49] VITALS: BP 137/82; PULSE 79; RESP 18; TEMP 97; O2SAT 94
[2017-01-04] MEDS: CLOPIDOGREL BISULFATE 75 MG TAB PO SCH (08:04)
[2017-01-04] MEDS: DOCUSATE SODIUM 100 MG CAP PO SCH (08:05)
[2017-01-04] MEDS: MORPHINE 30 MG PO SCH (08:06)
[2017-01-04] MEDS: ENOXAPARIN 40 MG/0.4 ML SYR SC SCH (08:06)
[2017-01-04] MEDS: INSULIN DETEMIR 80 UNIT SQ SCH (08:07)
--- NOTE | 2017-01-04 12:49 | SOAPPROG ---
SOAP Progress Note Assessment/Plan: Assessment:good night. pain better yet. foot better today than last year. ambulating better. ready to go home afebrile. incisions all clean. still mild erythema left lateral leg (vs hyperemia). strong graft pulse. doppler ankle signals present. foot pink and warm - excellent cap refill. K 3.8. doing well, motivated. cont PO clindamycin at home. cont Plavix. DC today Plan: 01/01/17 09:41 01/02/17 08:55 01/03/17 07:45 01/04/17 12:47 Objective: Vital Signs Temp Pulse Resp BP Pulse Ox 36.1 C 79 18 137/82 H 94 01/04/17 07:47 01/04/17 07:47 01/04/17 07:47 01/04/17 07:47 01/04/17 07:47 Laboratory Results 01/01/17 06:10 01/04/17 04:14 01/03/17 01/04/17 01/05/17 05:59 05:59 05:59 Intake Total 1850 50 Output Total 8358 300 Balance -325 -250 ICD10 Worksheet Patient Problems: Problems Problem Status Onset Chronic pain Acute HTN (hypertension) Acute
--- NOTE | 2017-01-04 13:19 | GDS ---
[f rep st] DISCHARGE SUMMARY REASON FOR ADMISSION: Femoral artery occlusion. BRIEF HISTORY AND HOSPITAL COURSE: 51-year-old male with an ischemic left leg. He underwent a redo left femoral to anterior tibial artery bypass with composite reverse saphenous vein graft. This was a technically complicated procedure. He had an unremarkable postoperative course. He was discharged to home on postoperative day #4 in excellent condition, tolerating a regular diet, ambulating in the halls with the use of a walker. His pain was adequately controlled with his usual home analgesic regimen. He was to resume all pre-hospital medications. He was to resume Plavix. He was discharged on a short course of clindamycin given persistent left lateral thigh redness along his anterior tibial artery incision site. It was unclear if this was cellulitis versus simple hyperemia. He will be seen in followup with Dr. Randle in 1 week. A palpable graft pulse was present upon discharge. The patient was instructed on how to continue checking graft patency. Copy requested to: Parvez Zazueta MD /[id number]/MODL MTDD
== END 2017-01-04 13:36 | disposition home or self-care (01) | DRG 254 ==
LOC: F3E 11:13 → F2N 23:08 → F3N 01-02 12:09
PROVIDERS: ADMIT Surgery; ATTEND Surgery
DX: I74.3 Embolism and thrombosis of arteries of the lower extremities (principal); E78.00 Pure hypercholesterolemia, unspecified; I10 Essential (primary) hypertension; M54.9 Dorsalgia, unspecified
CPT/HCPCS: 97161-GP; 97166-GO; 97530-GO; C1757; J1170; J1644; J1650; J2250; J2405; J2440; J2704; J3010; J3030; Q9961

== ENCOUNTER → 2017-04-12 | Outpatient (CLI) | payer MEDICAID ==
[~2017-04-12] MED LIST changes: +IOPAMIDOL (ISOVUE 370) 100 ML BTL IV ONE; -IOPAMIDOL (ISOVUE-300) 100 ML BTL IV ONE
== END ==
LOC: FIMAGING 10:04
PROVIDERS: ATTEND Surgery
DX: I71.4 Abdominal aortic aneurysm, without rupture (principal); I77.1 Stricture of artery; I25.10 Atherosclerotic heart disease of native coronary artery without angina pectoris
CPT/HCPCS: Q9967

== ENCOUNTER 2017-06-23 07:45 | Day surgery (SDC) | payer MEDICAID ==
[2017-06-23 08:55] LABS: % IMMATURE GRANULYOCYTES 0.3 % (0.0-1.1); ABSOLUTE IMMATURE GRANULOCYTES 0.03 10^3/uL (0.00-0.10); ADD DIFF? NO; ADD MORPH? NO; ADD SCAN? NO; ATYPICAL LYMPHOCYTE FLAG 10 (0-99); FRAGMENT RBC FLAG 0 (0-99); HEMATOCRIT 50.2 % (40.0-51.0); HEMOGLOBIN 16.6 g/dL (13.7-17.5); LEFT SHIFT FLG 0 (0-99); LIPEMIA HEMOLYSIS FLAG 80 (0-99); MEAN CELL HEMOGLOBIN 29.2 pg (27.9-34.1); MEAN CELL HEMOGLOBIN CONCENTR. 33.1 g/dL (32.4-36.7); MEAN CELL VOLUME 88.4 fL (81.5-99.8); MEAN PLATELET VOLUME 10.7 fL (8.7-11.7); PLATELET CLUMPS FLAG 50 (0-99); PLATELET COUNT 234 10^3/uL (150-400); RED BLOOD CELL COUNT 5.68 10^6/uL (4.40-6.38); RED CELL DISTRIBUTION WIDTH 13.1 % (11.5-15.2)
[2017-06-23] MEDS ORDERED: NS 1,000 ML IV SCH (09:00)
[2017-06-23 09:11] LABS: INR 0.89 (0.83-1.16); PROTIME(PATIENT) 11.9 SEC (12.0-15.0)
[2017-06-23] MEDS ORDERED: NALOXONE HCL 0.4 MG/ML INJ ONE (09:11)
[2017-06-23] MEDS ORDERED: PROMETHAZINE HCL 25 MG/ML INJ ONE (09:11)
[2017-06-23] MEDS ORDERED: FLUMAZENIL 0.5 MG/5 ML MDV IVP ONE (09:11)
[2017-06-23] MEDS ORDERED: fentaNYL 100 MCG/2 ML INJ ONE ×3 (09:12→10:54)
[2017-06-23] MEDS ORDERED: MIDAZOLAM 2 MG/2 ML VIAL ONE ×3 (09:12→10:55)
[2017-06-23 09:13] LABS: APTT 20.7 SEC (23.0-38.0); GLOMERULAR FILTRATION RATE > 60
[2017-06-23] MEDS ORDERED: IOPAMIDOL (ISOVUE-300) 100 ML BTL ONE (11:43)
[2017-06-23] MEDS ORDERED: CLOPIDOGREL BISULFATE 75 MG TAB ONE (12:19)
[2017-06-23] MEDS ORDERED: CLOPIDOGREL BISULFATE 75 MG TAB PO ONE (12:30)
== END 2017-06-23 15:00 | disposition home or self-care (01) ==
LOC: FIMAGING 07:45
PROVIDERS: ATTEND Surgery
PROC: B41B1ZZ Fluoroscopy of Other Intra-Abdominal Arteries using Low Osmolar Contrast (ICD-10-PCS; principal; 2017-06-23)
PROC: B44LZZZ Ultrasonography of Femoral Artery (ICD-10-PCS; principal; 2017-06-23)
PROC: B41G1ZZ Fluoroscopy of Left Lower Extremity Arteries using Low Osmolar Contrast (ICD-10-PCS; principal; 2017-06-23)
DX: T82.858A Stenosis of other vascular prosthetic devices, implants and grafts, initial encounter (principal); I97.88 Other intraoperative complications of the circulatory system, not elsewhere classified; I71.4 Abdominal aortic aneurysm, without rupture; I77.1 Stricture of artery; F17.210 Nicotine dependence, cigarettes, uncomplicated
CPT/HCPCS: 36247; 75710; 99152; 99153; C1769; C1892; C1894; C1760; J1644; J2250; J2310; J2550; J3010; Q9967

== ENCOUNTER 2017-10-18 10:23 | Emergency (ER) | payer MEDICAID ==
--- NOTE | 2017-10-18 10:39 | EDPHY ---
H & P Stated Complaint: Exacerbation of chronic back pain;felt pop in lower back 2 days ago Time Seen by Provider: 10/18/17 10:38 HPI/ROS: HPI: This is a 52-year-old male presents with Chief Complaint: Exacerbation of chronic back pain;felt pop in lower back 2 days ago Location: Left lower back Quality: Pain Duration: 2 days ago Signs and Symptoms: No bleeding, no radiation, no numbness, no weakness, no tingling, no incontinence, + urinary hesitancy, + urinary frequency, no decreased range of motion, no swelling, + pain Timing: Acute Severity: Moderate Context: Patient reports that he has chronic low back problems and uses a cane to aid ambulation presents with 2 day history of left lower lumbar pain that is nonradiating in nature. He reports that he felt his back pop in that particular area when he picked up his backpack. Patient reports that he takes morphine and Dilaudid as needed for chronic pain. He denies being out of his pain medication. He reports that he had images of his spine in March of [address] abdomen and pelvis on C7 02/05/2017 shows moderate degenerative disc disease at L5-S1 more prominent on the right side with right- sided neuroforaminal stenosis. He reports that he is ambulatory with little difficulty. His elderly mother drove him to the emergency room today. He has been disappointed with his previous pain management spinal surgeons in the past. After further questioning, patient reports that he really here today did receive documentation referral to another medical claims specialist. His sugars have been running in the 150s. Modifying Factors: None Comment: ROS: see HPI Constitutional: No fever, no chills, no weight loss Eyes: No blurred vision Respiratory: No shortness of breath, no cough Cardiovascular: No chest pain Gastrointestinal: No nausea, no vomiting no diarrhea Genitourinary: No dysuria Extremities: No myalgias Neurologic: No weakness, no numbness Skin: No rashes Hematologic: No bruising, no bleeding MEDICAL/SURGICAL/SOCIAL HISTORY: Medical/Surgical history: DM, HTN, Chronic Back pain, Heavy Smoker bilateral fem art bypasses, AAA Social history: Unemployed. CONSTITUTIONAL: Obese, well-appearing, adult male awake and alert, no obvious distress HEENT: Atraumatic and normocephalic. NECK: supple, no midline tenderness, flexion 45 degrees, extension 45 degrees, right and left lateral flexion 45 degrees. No meningismus. Cardiovascular: Normal S1/S2, regular rate, regular rhythm, without murmur rub or gallop. PULMONARY/CHEST: Symmetrical and nontender. no crepitus. Clear to auscultation bilaterally. Good air movement. No accessory muscle usage. ABDOMEN: Soft, nondistended, nontender, no ecchymosis. PELVIC: no pain with rocking; bilateral hips flexion 125 degrees, extension 30 degrees, with no pain internal rotation and no pain external rotation. BACK: No midline tenderness, mild left-sided paraspinous muscle reproducible tenderness, no paraspinous spasm, deep tendon reflexes 2/2, no pain with straight leg raise EXTREMITIES: 2/2 pulses, no deformities, no clubbing, no cyanosis or edema. NEUROLOGICAL: no focal neuro deficits. GCS 15. Light touch sensation intact. SKIN: Warm and dry, no erythema. no rash. Good capillary refill. Source: Patient Exam Limitations: No limitations - Personal History Current Tetanus Diphtheria and Acellular Pertussis (TDAP): Yes - Medical/Surgical History Hx Asthma: No Hx Chronic Respiratory Disease: No Hx Diabetes: Yes Hx Cardiac Disease: No Hx Renal Disease: Yes Hx Cirrhosis: No Hx Alcoholism: No Hx HIV/AIDS: No Hx Splenectomy or Spleen Trauma: No Other PMH: DM,HTN,Chronic Back pain, Heavy Smoker. bilat fem art bypasses, AAA - Social History Smoking Status: Current every day smoker Constitutional: Initial Vital Signs Temperature (C) 36.5 C 10/18/17 10:24 Heart Rate 94 10/18/17 10:24 Respiratory Rate 18 10/18/17 10:24 Blood Pressure 148/113 H 10/18/17 10:24 O2 Sat (%) 97 10/18/17 10:24 O2 Delivery Mode Room Air Allergies/Adverse Reactions: NSAIDS (Non-Steroidal Anti-Inflamma [Nsaids] Allergy (Severe, Verified 10/18/17 10:24) Anaphylaxis dexmedetomidine [From Precedex] Allergy (Intermediate, Verified 10/18/17 10:24) Other-Enter Comments clindamycin Allergy (Verified 10/18/17 10:24) Hives Penicillins Allergy (Verified 10/18/17 10:24) Anaphylaxis Home Medications: Medication Instructions Recorded Eszopiclone [Lunesta] 3 mg PO HS 04/08/16 HYDROmorphone HCL [Dilaudid 4 mg 8 mg PO QID PRN 04/08/16 (*)] Insulin Detemir [Levemir] 80 unit SQ BID 04/08/16 Losartan/Hydrochlorothiazide 1 each PO DAILY 04/08/16 [Hyzaar 100-12.5 Tablet] Morphine Sulfate [Morphine Sulfate 30 mg PO BID 09/01/16 ER] Atorvastatin Calcium [Lipitor 40 40 mg PO 10/18/17 mg (*)] Cyclobenzaprine [Flexeril 10 MG 10 mg PO Q8 PRN #10 tab 10/18/17 (*)] Medical Decision Making ED Course/Re-evaluation: Offered images in the ER and patient reports he had MRI of his abdomen approximately 6 months ago that showed his lumbar degenerative disc disease and politely refuses. Offer patient Toradol and he states he is allergic, offered patient steroids and he states he has diabetes, offer patient gabapentin any reports that causes a rash, offer patient Valium any reports that it does not sit well with him. Patient is requesting few pills of Flexeril, documentation is chart of exacerbation of chronic low back pain and referral to new medical claims specialist as he did not care for his previous one Patient refused urinalysis for frequency and hesitancy symptoms. Vital signs reviewed upon arrival and stable. No signs of neurovascular compromise/tenting of skin/compartment syndrome/ extremities and joints examined above and below area of concern and are neurovascularly intact. This patient was seen under the supervision of my secondary supervising physician. I evaluated care for this patient independently. Discussed this patient with Dr. Clemente who did not see the patient. Differential Diagnosis: Back pain including but not limited to muscular pain, herniated disc, spine fracture, intra-abdominal causes and urinary tract infection. Departure - Departure Disposition: Home, Routine, Self-Care Clinical Impression: Acute exacerbation of chronic low back pain Condition: Good Instructions: Acute Low Back Pain (ED), Chronic Back Pain (ED) Additional Instructions: If at any time you develop incontinence, intractable pain, weakness; return to the emergency room immediately for evaluation. Please follow-up with your primary care provider and instructional specialist for further evaluation and management. Referrals: MORGAN KEITA [Primary Care Provider] - As per Instructions [facility] [Provider Group] - As per Instructions Prescriptions: Cyclobenzaprine [Flexeril 10 MG (*)] 10 mg PO Q8 PRN #10 tab PRN Reason: Spasms
[2017-10-18 11:33] VITALS: BP 145/74; PULSE 64; RESP 16; TEMP 98.2; O2SAT 98
== END 2017-10-18 11:35 | disposition home or self-care (01) ==
DX: M54.5 Low back pain (principal); G89.29 Other chronic pain; E11.9 Type 2 diabetes mellitus without complications; I10 Essential (primary) hypertension; F17.200 Nicotine dependence, unspecified, uncomplicated; Z79.4 Long term (current) use of insulin

== ENCOUNTER → 2017-11-08 | Outpatient (CLI) | payer MEDICAID | LOC: FIMAGING 07:42 | PROVIDERS: ATTEND Surgery | DX: M51.86 Other intervertebral disc disorders, lumbar region (principal); M43.16 Spondylolisthesis, lumbar region; M51.36 Other intervertebral disc degeneration, lumbar region; I71.4 Abdominal aortic aneurysm, without rupture ==

== ENCOUNTER → 2018-05-03 | Outpatient (CLI) | payer MEDICAID ==
[2018-05-03 13:06] LABS: PLATELET COUNT 263 10^3/uL (150-400)
[2018-05-03 13:22] LABS: INR 0.95 (0.83-1.16); PROTIME(PATIENT) 12.9 SEC (12.0-15.0)
--- NOTE | 2018-05-04 10:24 | CPEKG ---
Test Reason : OPEN Blood Pressure : / mmHG Vent. Rate : 073 BPM Atrial Rate : 073 BPM P-R Int : 168 ms QRS Dur : 096 ms QT Int : 376 ms P-R-T Axes : 014 -33 -08 degrees QTc Int : 415 ms SINUS RHYTHM LEFT AXIS DEVIATION Confirmed by Thang Ferguson ([id number]) on 05/04/2018 10:23:50 AM Referred By: Confirmed By:Thang Ferguson
== END ==
LOC: FIMAGING 11:27
PROVIDERS: ATTEND Radiology Diagnostic Radiology
DX: Z01.810 Encounter for preprocedural cardiovascular examination (principal)
CPT/HCPCS: 82947-QW

== ENCOUNTER → 2019-02-08 | Outpatient (CLI) | payer MEDICAID | LOC: FIMAGING 10:07 | PROVIDERS: ATTEND Radiology Diagnostic Radiology | DX: I71.4 Abdominal aortic aneurysm, without rupture (principal) | CPT/HCPCS: 82565-PO; Q9967 ==